=== PATIENT | male | born 1965 | race Caucasian/White ===

== ENCOUNTER 2017-09-02 09:43 | Emergency (ER) | payer BC ==
[~2017-09-02] VITALS: Ht 172.7 cm; Wt 135.9 kg
[~2017-09-02 09:43] MED LIST: AMLO10TA2 PO; LORA0.5T PO; LOSA50TA6 PO; SERT100T PO; ZOLP10TA5 PO
[2017-09-02 10:05] VITALS: BP 139/99
[2017-09-02] MEDS ORDERED: KETOROLAC 30 MG/1 ML IM ONE (11:00)
[2017-09-02] MEDS ORDERED: BENZONATATE 100 MG CAPSULE PO ONE (11:00)
[2017-09-02] MEDS ORDERED: KETOROLAC 30 MG/1 ML ONE (11:39)
[2017-09-02] MEDS ORDERED: BENZONATATE 100 MG CAPSULE ONE (11:41)
== END 2017-09-02 12:24 | disposition home or self-care (01) ==
LOC: ED 12:00
DX: S22.31XA Fracture of one rib, right side, initial encounter for closed fracture (principal); J98.01 Acute bronchospasm; E11.9 Type 2 diabetes mellitus without complications; I10 Essential (primary) hypertension; X58.XXXA Exposure to other specified factors, initial encounter; Y93.89 Activity, other specified; Y92.89 Other specified places as the place of occurrence of the external cause; Y99.9 Unspecified external cause status
CPT/HCPCS: 71101; 96372; 99284; J1885

== ENCOUNTER 2020-01-24 22:55 | Emergency (ER) | payer BC, OTHER ==
[~2020-01-24] VITALS: Ht 172.7 cm; Wt 143.3 kg
[~2020-01-24 22:55] MED LIST changes: -AMLO10TA2 PO; +AMLO10TA8 PO; +LOSA50TA14 PO; -LOSA50TA6 PO
[2020-01-24 22:57] VITALS: BP 166/100
--- NOTE | 2020-01-24 23:14 | NUR ---
DR RAMIREZ AT FOR PT HISTORY AND ASSESSMENT.
[2020-01-24] MEDS ORDERED: LIDOCAINE-MPF 1%, 5ML ONE (23:20)
[2020-01-24] MEDS ORDERED: LIDOCAINE-MPF 1%, 5ML INFIL ONE (23:30)
--- NOTE | 2020-01-24 23:42 | NUR ---
PT TO CT VIA [facility] AT THIS TIME.
--- NOTE | 2020-01-24 23:55 | NUR ---
PT BACK FROM CT VIA [facility] AT THIS TIME.
[2020-01-25] MEDS ORDERED: DIPH,PERTUSS(ACELL),TET VAC/PF 0.5 ML IM-VACC ONE (00:30)
[2020-01-25] MEDS ORDERED: NEOSPORIN OINT. PKT 1 PACKET ONE (00:55)
--- NOTE | 2020-01-25 01:10 | NUR ---
PT D/C WITH D/C SUMMARY AND SCRIPTS. ALL QUESTIONS ANSWERED. PT VERBALIZES UNDERSTANDING OF WOUND CARE AND F/U INSTRUCTIONS. PT AMBULATES TO REGISTRATION DESK WITH STEADY GAIT FOR D/C HOME.
== END 2020-01-25 01:13 | disposition home or self-care (01) ==
LOC: ED 01-25 01:00
DX: S06.0X0A Concussion without loss of consciousness, initial encounter (principal); S16.1XXA Strain of muscle, fascia and tendon at neck level, initial encounter; S00.01XA Abrasion of scalp, initial encounter; I10 Essential (primary) hypertension; E11.9 Type 2 diabetes mellitus without complications; X58.XXXA Exposure to other specified factors, initial encounter; Y93.89 Activity, other specified; Y92.69 Other specified industrial and construction area as the place of occurrence of the external cause; Y99.8 Other external cause status
CPT/HCPCS: 70450; 72125; 99285

== ENCOUNTER 2020-05-04 01:28 | Inpatient (IN) | payer BC, OTHER ==
[~2020-05-04] VITALS: Ht 172.7 cm; Wt 151.6 kg
[2020-05-04] MEDS ORDERED: MAALOX/HYOSCYAMINE/LIDOCAINE 45 ML BTL ONE (02:10)
--- NOTE | 2020-05-04 02:19 | NUR ---
Pt comes in with complaints of a burning sensation in the chest that started at 2200 last night. Patient stated that he was just sitting watching TV when it started. Patient denies any past AR, but has had TIA. Patient currently on HTN medication and HLD medication. Patient placed on bus driver/monitor and continous pulse ox. Labs drawn and IV established. Patient resting at this time. Will con't to montior
[2020-05-04 02:25] LABS: BASOPHILS % (AUTO) 1 % (0-1); EOSINOPHILS % (AUTO) 2 % (1-7); LYMPHOCYTES % (AUTO) 15 % (22-44); MEAN CORPUSCULAR HEMOGLOBIN 30.5 pg (27.5-34.5); MEAN CORPUSCULAR HGB CONC 33.1 g/dL (33.2-36.2); MEAN PLATELET VOLUME 7.6 fL (7.4-10.4); MONOCYTES % (AUTO) 7 % (2-9); NEUTROPHILS % (AUTO) 77 % (42-75); PLATELET COUNT 242 x10^3/uL (130-400); RED BLOOD COUNT 5.61 x10^6/uL (4.38-5.82); RED CELL DISTRIBUTION WIDTH 13.7 % (9.4-14.8)
[2020-05-04] MEDS ORDERED: MAALOX/HYOSCYAMINE/LIDOCAINE 45 ML BTL PO ONE (02:30)
[2020-05-04 02:33] LABS: MD NO
[2020-05-04 02:38] LABS: ALANINE AMINOTRANSFERASE 46 U/L (12-78); ANION GAP 6 mmol/L (5-15); CALCIUM 9.1 mg/dL (8.5-10.1); CHLORIDE 105 mmol/L (98-107); CREATININE 1.25 mg/dL (0.7-1.3)
--- NOTE | 2020-05-04 02:40 | NUR ---
Break RN: EKG and X ray done. patient's BP still elevated.
[2020-05-04 02:42] LABS: ALKALINE PHOSPHATASE 77 U/L (45-117); BILIRUBIN,TOTAL 0.5 mg/dL (0.2-1.0); TOTAL PROTEIN 7.8 g/dL (6.4-8.2)
[2020-05-04 02:56] LABS: TROPONIN I 0.563 ng/mL (0.000-0.045)
[2020-05-04] MEDS ORDERED: NITROGLYCERIN SINGLE TAB 0.4 MG SL ONE (03:27)
[2020-05-04] MEDS: NITROGLYCERIN 0.4 MG BOTTLE (25 TABS) SL PRN ×2 (03:29→03:56)
--- NOTE | 2020-05-04 03:29 | NUR ---
Nitro given- pain 02/17: b/p 194/132 p 80 Recheck [id number] pain 10/18: b/p 170/104 p 75
[2020-05-04] MEDS ORDERED: HEPARIN 5,000 UNITS/ML, 1ML IV ONE (03:30)
--- NOTE | 2020-05-04 03:36 | NUR ---
Pt came to the ER with son. Patient states he doesn't have anyone to take his son, now that he is being admitted. Bath Tester aware.
[2020-05-04] MEDS ORDERED: HEPARIN 25,000 UNITS/250ML PMX 250 ML ONE (03:40)
[2020-05-04] MEDS ORDERED: HEPARIN 5,000 UNITS/ML, 1ML ONE (03:40)
[2020-05-04] MEDS: HEPARIN 25,000 UNITS/250ML PMX 250 ML IV PRN (04:01)
--- NOTE | 2020-05-04 04:09 | NUR ---
Heparin drip started, pharmacy called to verify dosing.
[2020-05-04] MEDS ORDERED: ONDANSETRON 2MG/ML, 2ML IVPush PRN (04:30)
[2020-05-04] MEDS ORDERED: ACETAMINOPHEN 325 MG TABLET PO PRN (04:30)
[2020-05-04 05:14] VITALS: BP 141/92
[2020-05-04] MEDS: NITROGLYCERIN OINT 2%, 1GM TP SCH ×2 (05:20→10:39)
[2020-05-04] MEDS ORDERED: METO25TA91 PO (05:29)
[2020-05-04] MEDS ORDERED: ATOR10TA9 PO (05:29)
[2020-05-04 06:57] VITALS: BP 173/111
[2020-05-04 06:59] VITALS: BP 165/107
[2020-05-04 09:33] VITALS: BP 153/93
[2020-05-04] MEDS: METOPROLOL TARTRATE 50 MG TAB PO SCH ×2 (10:39→20:14)
[2020-05-04] MEDS: HEPARIN 5,000 UNITS/ML, 1ML IV PRN ×2 (10:40→18:09)
[2020-05-04 12:14] VITALS: BP 157/94
[2020-05-04] MEDS: FLUTICASONE NASAL SPRAY 16GM NAS SCH ×2 (12:18→20:14)
[2020-05-04] MEDS: morphine SULFATE 10 MG/ML, 1ML IV PRN ×2 (17:16→20:14)
[2020-05-04 18:46] VITALS: BP 161/109
[2020-05-04] MEDS: ATORVASTATIN 80 MG TABLET PO SCH (20:14)
[2020-05-05 00:38] VITALS: BP 160/97
[2020-05-05] MEDS: HEPARIN 5,000 UNITS/ML, 1ML IV PRN (01:17)
[2020-05-05] MEDS: HEPARIN 25,000 UNITS/250ML PMX 250 ML IV PRN (01:26)
[2020-05-05] MEDS: ASPIRIN 325 MG TABLET PO SCH (05:57)
[2020-05-05] MEDS: NITROGLYCERIN OINT 2%, 1GM TP SCH ×2 (06:27→13:00)
[2020-05-05 06:53] VITALS: BP 157/95
[2020-05-05 07:10] LABS: BASOPHILS % (AUTO) 1 % (0-1); EOSINOPHILS % (AUTO) 1 % (1-7); LYMPHOCYTES % (AUTO) 16 % (22-44); MEAN CORPUSCULAR HEMOGLOBIN 30.7 pg (27.5-34.5); MEAN CORPUSCULAR HGB CONC 33.5 g/dL (33.2-36.2); MEAN PLATELET VOLUME 7.7 fL (7.4-10.4); MONOCYTES % (AUTO) 9 % (2-9); NEUTROPHILS % (AUTO) 74 % (42-75); PLATELET COUNT 233 x10^3/uL (130-400); RED BLOOD COUNT 5.31 x10^6/uL (4.38-5.82); RED CELL DISTRIBUTION WIDTH 13.9 % (9.4-14.8)
[2020-05-05 07:21] LABS: ANION GAP 5 mmol/L (5-15); CALCIUM 8.6 mg/dL (8.5-10.1); CHLORIDE 103 mmol/L (98-107); CREATININE 1.13 mg/dL (0.7-1.3)
[2020-05-05 07:24] LABS: MD NO
[2020-05-05 07:25] LABS: CHOL/HDL RATIO 4.1; CHOLESTEROL, TOTAL 199 mg/dL (140-239); HDL CHOL % 25 % (26-37); HDL CHOLESTEROL (DIRECT) 49 mg/dL (40-60); LDL CHOLESTEROL,CALCULATED 121 mg/dL (54-169); LDL/HDL RATIO 2.5 (0.5-3.0); TRIGLYCERIDES 144 mg/dL (50-200); VLDL CHOLESTEROL 29 mg/dL (0-25)
[2020-05-05] MEDS: METOPROLOL TARTRATE 50 MG TAB PO SCH (08:47)
[2020-05-05] MEDS: FLUTICASONE NASAL SPRAY 16GM NAS SCH ×2 (08:47→21:06)
[2020-05-05] MEDS: LISINOPRIL 10 MG TABLET PO SCH (08:47)
[2020-05-05] MEDS ORDERED: FENTANYL PF 250 MCG/5ML ONE (14:09)
[2020-05-05] MEDS ORDERED: NITROGLYCERIN 30 MCG/ML, 20ML VIAL ONE (14:09)
[2020-05-05] MEDS ORDERED: HEPARIN 1,000 UNITS/ML, 10ML ONE (14:09)
[2020-05-05] MEDS ORDERED: MIDAZOLAM 1 MG/ML, 5ML ONE (14:09)
[2020-05-05] MEDS ORDERED: VERAPAMIL 2.5 MG/ML, 2ML ONE (14:09)
[2020-05-05] MEDS ORDERED: BIVALIRUDIN 250 MG ONE ×2 (14:10→14:20)
[2020-05-05] MEDS ORDERED: LIDOCAINE-MPF 1%, 5ML ONE (14:11)
[2020-05-05] MEDS ORDERED: PRASUGREL 10 MG TABLET ONE (15:22)
[2020-05-05] MEDS ORDERED: BIVALIRUDIN 250 MG in SODIUM CHLORIDE 0.9% 50 ML IV SCH (15:30)
[2020-05-05 15:35] VITALS: BP 141/102
[2020-05-05] MEDS: SODIUM CHLORIDE 0.9% 1,000 ML IV SCH ×2 (15:58→23:33)
[2020-05-05] MEDS ORDERED: LISINOPRIL 10 MG TABLET PO ONE (16:30)
[2020-05-05 19:27] VITALS: BP 114/78
[2020-05-05] MEDS: ACETAMINOPHEN 500 MG TABLET PO PRN (21:05)
[2020-05-05] MEDS: METOPROLOL TARTRATE 100 MG TAB PO SCH (21:05)
[2020-05-05] MEDS: ATORVASTATIN 80 MG TABLET PO SCH (21:06)
[2020-05-06 01:37] VITALS: BP 102/68
[2020-05-06 05:18] LABS: ANION GAP 5 mmol/L (5-15); CALCIUM 8.3 mg/dL (8.5-10.1); CHLORIDE 102 mmol/L (98-107); CREATININE 1.31 mg/dL (0.7-1.3)
[2020-05-06] MEDS: ASPIRIN 325 MG TABLET PO SCH (06:19)
[2020-05-06] MEDS: NITROGLYCERIN OINT 2%, 1GM TP SCH ×3 (06:19→13:00)
[2020-05-06 06:21] VITALS: BP 113/76
[2020-05-06 06:41] VITALS: BP 109/73
[2020-05-06] MEDS: SODIUM CHLORIDE 0.9% 1,000 ML IV SCH ×3 (07:30→23:30)
[2020-05-06] MEDS: FLUTICASONE NASAL SPRAY 16GM NAS SCH ×2 (08:20→21:29)
[2020-05-06] MEDS: METOPROLOL TARTRATE 100 MG TAB PO SCH ×2 (08:21→21:29)
[2020-05-06] MEDS: LISINOPRIL 10 MG TABLET PO SCH (08:21)
[2020-05-06] MEDS: PRASUGREL 10 MG TABLET PO SCH (08:21)
[2020-05-06 12:22] VITALS: BP 117/77
[2020-05-06 15:42] LABS: BASOPHILS % (AUTO) 1 % (0-1); EOSINOPHILS % (AUTO) 1 % (1-7); LYMPHOCYTES % (AUTO) 13 % (22-44); MEAN CORPUSCULAR HEMOGLOBIN 30.2 pg (27.5-34.5); MEAN CORPUSCULAR HGB CONC 33.1 g/dL (33.2-36.2); MEAN PLATELET VOLUME 7.8 fL (7.4-10.4); MONOCYTES % (AUTO) 10 % (2-9); NEUTROPHILS % (AUTO) 75 % (42-75); PLATELET COUNT 215 x10^3/uL (130-400); RED BLOOD COUNT 4.96 x10^6/uL (4.38-5.82); RED CELL DISTRIBUTION WIDTH 14.3 % (9.4-14.8)
[2020-05-06 15:54] LABS: MD NO
[2020-05-06 15:56] LABS: C-REACTIVE PROTEIN, QUANT 11.5 mg/dL (0.02-0.49)
[2020-05-06] MEDS ORDERED: AZITHROMYCIN 500 MG in SODIUM CHLORIDE 0.9% 250 ML IV SCH (17:00)
[2020-05-06] MEDS: CEFTRIAXONE PMX 2GM/50ML 50 ML IVPB SCH (18:40)
[2020-05-06 19:57] VITALS: BP 107/72
[2020-05-06] MEDS: ATORVASTATIN 80 MG TABLET PO SCH (21:30)
[2020-05-06] MEDS: ACETAMINOPHEN 500 MG TABLET PO PRN (21:31)
[2020-05-07 00:42] VITALS: BP 102/68
[2020-05-07] MEDS: ASPIRIN 325 MG TABLET PO SCH (05:40)
[2020-05-07 06:30] LABS: ALANINE AMINOTRANSFERASE 39 U/L (12-78); ALBUMIN 3.2 g/dL (3.4-5.0); ANION GAP 7 mmol/L (5-15); CALCIUM 8.6 mg/dL (8.5-10.1); CHLORIDE 104 mmol/L (98-107); CREATININE 1.37 mg/dL (0.7-1.3)
[2020-05-07 06:32] LABS: ALKALINE PHOSPHATASE 56 U/L (45-117); BILIRUBIN,TOTAL 0.8 mg/dL (0.2-1.0); TOTAL PROTEIN 6.8 g/dL (6.4-8.2)
[2020-05-07 06:33] LABS: BASOPHILS % (AUTO) 0 % (0-1); EOSINOPHILS % (AUTO) 2 % (1-7); LYMPHOCYTES % (AUTO) 16 % (22-44); MEAN CORPUSCULAR HEMOGLOBIN 30.7 pg (27.5-34.5); MEAN CORPUSCULAR HGB CONC 33.2 g/dL (33.2-36.2); MEAN PLATELET VOLUME 8.1 fL (7.4-10.4); MONOCYTES % (AUTO) 10 % (2-9); NEUTROPHILS % (AUTO) 71 % (42-75); PLATELET COUNT 198 x10^3/uL (130-400); RED BLOOD COUNT 4.86 x10^6/uL (4.38-5.82); RED CELL DISTRIBUTION WIDTH 14.1 % (9.4-14.8)
[2020-05-07 06:47] VITALS: BP 123/85
[2020-05-07] MEDS: NITROGLYCERIN OINT 2%, 1GM TP SCH ×2 (07:00→13:00)
[2020-05-07] MEDS: FLUTICASONE NASAL SPRAY 16GM NAS SCH (08:25)
[2020-05-07] MEDS: PRASUGREL 10 MG TABLET PO SCH (08:26)
[2020-05-07] MEDS: METOPROLOL TARTRATE 100 MG TAB PO SCH (08:26)
[2020-05-07] MEDS: LISINOPRIL 10 MG TABLET PO SCH (08:26)
[2020-05-07 08:56] LABS: MD SCAN
[2020-05-07 12:33] VITALS: BP 109/76
[2020-05-07] MEDS ORDERED: DOXY100T PO (17:06)
[2020-05-07] MEDS ORDERED: PRAS10TA4 PO (17:06)
[2020-05-07] MEDS ORDERED: ATOR-2 PO (17:06)
[2020-05-07] MEDS ORDERED: DEXA4TAB66 PO (17:06)
[2020-05-07] MEDS ORDERED: ASPI-515 PO (17:06)
[2020-05-07] MEDS ORDERED: CEFD300C37 PO (17:06)
[2020-05-07] MEDS ORDERED: NITR0.6T4 SL (17:06)
[2020-05-07] MEDS ORDERED: METO200T2 PO (17:06)
[2020-05-07] MEDS: CEFTRIAXONE PMX 2GM/50ML 50 ML IVPB SCH (18:00)
== END 2020-05-07 18:05 | disposition home or self-care (01) | DRG 246 ==
LOC: ED 03:23 → EDIP 03:30 → 5SO 04:20 → 4EST 05-06 20:32
PROVIDERS: ADMIT Family Medicine; ATTEND Internal Medicine
PROC: B2151ZZ Fluoroscopy of Left Heart using Low Osmolar Contrast (ICD-10-PCS; principal; 2020-05-05)
PROC: 027034Z Dilation of Coronary Artery, One Artery with Drug-eluting Intraluminal Device, Percutaneous Approach (ICD-10-PCS; 2020-05-05)
PROC: B2111ZZ Fluoroscopy of Multiple Coronary Arteries using Low Osmolar Contrast (ICD-10-PCS; 2020-05-05)
PROC: 4A023N7 Measurement of Cardiac Sampling and Pressure, Left Heart, Percutaneous Approach (ICD-10-PCS; 2020-05-05)
DX: I21.4 Non-ST elevation (NSTEMI) myocardial infarction (principal); J96.01 Acute respiratory failure with hypoxia; I16.1 Hypertensive emergency; I47.2 Ventricular tachycardia; C34.90 Malignant neoplasm of unspecified part of unspecified bronchus or lung; Z68.43 Body mass index [BMI] 50.0-59.9, adult; E66.01 Morbid (severe) obesity due to excess calories; I11.0 Hypertensive heart disease with heart failure; I50.9 Heart failure, unspecified; M94.0 Chondrocostal junction syndrome [Tietze]; Z20.828 Contact with and (suspected) exposure to other viral communicable diseases; E78.5 Hyperlipidemia, unspecified; Z83.3 Family history of diabetes mellitus; Z80.8 Family history of malignant neoplasm of other organs or systems; Z80.1 Family history of malignant neoplasm of trachea, bronchus and lung; Z82.49 Family history of ischemic heart disease and other diseases of the circulatory system; Z85.46 Personal history of malignant neoplasm of prostate; Z91.19 Patient's noncompliance with other medical treatment and regimen; Z87.891 Personal history of nicotine dependence; Z86.73 Personal history of transient ischemic attack (TIA), and cerebral infarction without residual deficits
CPT/HCPCS: 36415; 84145; 93458; 96374; 99285; C8929; C9600; 71045; 80048; 80053; 80061; 83036; 83615; 83880; 84484; 85025; 85520; 86140; 87040; 87635; 93005; 99156; 99157; C1769; C1894; G0378; J0456; J0583; J0696; J1644; J2250; J2405; J3010; Q9957; C1725; C1874; C1887; J2270; J7050; Q9967